=== PATIENT | female | born 1940 | race Caucasian/White ===

== ENCOUNTER 2020-01-24 09:34 | Outpatient (CLI) | payer MEDICARE, SELFPAY ==
--- NOTE | ~2020-01-24 | XR_ITS ---
EXAMINATION: XR chest 2V 01/24/2020 10:54 INDICATION: Preop PROCEDURE: 2 view chest COMPARISON: No prior studies for comparison. FINDINGS: The lungs are clear. The cardiomediastinal silhouette is within normal limits. There are no pleural effusions. There is no pneumothorax suspected. IMPRESSION: 1: NO ACUTE CARDIOPULMONARY DISEASE. Reviewed, dictated and finalized at location B.
--- NOTE | 2020-01-24 10:32 | ECG_ITS ---
Measurements Intervals [place] Rate: 55 P: 35 NE: 158 QRS: -11 QRSD: 89 T: -14 QT: 487 QTc: 467 Interpretive Statements SINUS BRADYCARDIA LOW QRS VOLTAGE IN PRECORDIAL LEADS INFERIOR INFARCT, AGE INDETERMINATE ST-T WAVE ABNORMALITY IN ANTERIOR LEADS- CONSIDER ISCHEMIA ABNORMAL ECG Electronically Signed On 01-24-2020 12:11:21 CDT by Volodymyr Schumacher D.O.
[2020-01-24 11:16] LABS: Basophils Absolute Auto 0.1 K/mm3 (0.0-0.1); Eosinophils Absolute Auto 0.1 K/mm3 (0-0.3); Eosinophils Percent Auto 1.5 % (0-4.4); Hematocrit 40.6 % (37.0-47.0); Hemoglobin 13.4 g/dL (12.0-15.0); Immature Granulocyte Absolute 0.01 K/mm3 (0.00-0.031); Immature Granulocyte Percent A 0.2 % (0-0.5); Lymphocytes Absolute Auto 1.57 K/mm3 (0.9-3.2); Lymphocytes Percent Auto 26.7 % (18.3-44.2); Mean Platelet Volume 11.3 fl (7.4-10.4); Monocytes Absolute Auto 0.5 K/mm3 (0.1-0.6); Monocytes Percent Auto 8.5 % (2.6-8.5); Neutrophils Absolute Auto 3.7 K/mm3 (1.3-6.7); Neutrophils Percent Auto 62.1 % (45.5-73.1); Platelet Count Result 221 k/mm3 (150-375); Red Blood Count 4.32 M/mm3 (4.2-5.4); White Blood Count 5.9 K/mm3 (4.5-10.0)
[2020-01-24 11:30] LABS: Albumin Level 4.4 g/dL (3.5-5.1); Blood Urea Nitrogen 22 mg/dL (7-17); Carbon Dioxide 30 mmol/L (22-30); Chloride 101 mmol/L (98-107); Estimated Glomerular Filt Rate 44; Glucose 102 mg/dL (65-105); Potassium 4.1 mmol/L (3.4-5.0); Sodium 139 mmol/L (137-145)
[2020-01-24 11:59] LABS: Hemoglobin A1C 5.6 % (<5.7)
[2020-01-24 13:46] LABS: Urine Cotinine NEGATIVE
== END 2020-01-24 09:35 | disposition home or self-care (01) ==
LOC: ANHSURGERY 09:37
PROVIDERS: PCP Internal Medicine; Visit Provider Orthopaedic Surgery
DX: M16.12 Unilateral primary osteoarthritis, left hip (principal); Z01.818 Encounter for other preprocedural examination
CPT/HCPCS: 36415; 71046; 80048; 80307; 82040; 83036; 85025; 87070; 93005

== ENCOUNTER 2020-01-30 10:17 | Outpatient (CLI) | payer MEDICARE, SELFPAY ==
--- NOTE | ~2020-01-30 | XR_ITS ---
EXAMINATION: XR lg joint inject/asp w image DATE: 01/30/2020 11:05 INDICATION: Severe osteoarthritis of the right glenohumeral joint. TECHNIQUE: A time-out was performed to verify the patient's name, date of , and procedure to b e performed. The procedure including the risks, benefits, and alternatives was discussed with the pat ient. Risks discussed included bleeding and infection. The patient understood the risks and agreed to proceed. The skin overlying the right glenohumeral joint was prepped and draped in usual sterile fa shion. Anesthetic was administered with 1% lidocaine subcutaneously. A 22 G needle was advanced und er fluoroscopic guidance into the joint. Injection of 1 mL of Omnipaque 240 confirmed intra-articula r position of the needle. Subsequently, injectate consisting of 3 mL 1% lidocaine and 1 mL 80 mg/mL Depo-Medrol was instilled. The needle was removed and the entry site was cleaned and dressed. There were no immediate complications. Fluoroscopy exposure time was 0.1 minutes. The total number of imag es was 2. FINDINGS: Real-time fluoroscopy demonstrates the needle in the right glenohumeral joint. IMPRESSION: 1. Right glenohumeral joint injection of local anesthetic and steroid . Reviewed, dictated and finalized at location A.
== END 2020-01-30 10:18 | disposition home or self-care (01) ==
PROVIDERS: PCP Internal Medicine; Visit Provider Orthopaedic Surgery
DX: M19.011 Primary osteoarthritis, right shoulder (principal)
CPT/HCPCS: 20610; 77002; J1040; Q9966

== ENCOUNTER 2020-01-31 07:16 | Outpatient (CLI) | payer MEDICARE, SELFPAY ==
--- NOTE | 2020-01-31 | EST_ITS ---
Patient Info Name: Maribel Smith Age: 79 years : 1940 Gender: Female Ht: 65 in Wt: 159 lbs BSA: 1.83 m2 HR: 57 bpm BP: 117 / 58 mmHg Heart Rhythm: Sinus Rhythm Exam Date: 01/31/2020 9:21 AM Exam Location: [facility] Stress Patient Status: Outpatient Admit Date: 01/31/2020 Staff Ordering Physician: Danna, Nicanor Ge MD Attending Provider: Danna, Nicanor Ge MD Exercise Technologist: Nuha Marcos RDCS Nurse: Irma Chambers, ANP, ACNP-BC Exam Type: CA stress josi w NM Study Info Indications R94.31 - Abnormal electrocardiogram ECG EKG A regadenoson stress test was performed. Summary 1. Please correlate with nuclear medicine images, reported separately. 2. Non-diagnostic ECG response due to resting abnormalities. 3. Nondiagnostic ST and T-wave changes seen with Lexiscan. Protocol: Lexiscan Stress ECG Details Stage: REST Duration (min): 1 min : 2 sec HR (bpm): 58 SBP (mmHg): 117 DBP (mmHg): 58 Stage: REST Duration (min): 11 min : 43 sec HR (bpm): 55 SBP (mmHg): 117 DBP (mmHg): 58 Stage: REST Duration (min): 17 min : 16 sec HR (bpm): 57 SBP (mmHg): 117 DBP (mmHg): 58 Stage: STAGE 1 Duration (min): 1 min : 0 sec HR (bpm): 80 SBP (mmHg): 127 DBP (mmHg): 67 Stage: RECOVERY Duration (min): 1 min : 0 sec HR (bpm): 82 SBP (mmHg): 122 DBP (mmHg): 67 Stage: RECOVERY Duration (min): 2 min : 0 sec HR (bpm): 82 SBP (mmHg): 122 DBP (mmHg): 67 Stage: RECOVERY Duration (min): 3 min : 0 sec HR (bpm): 79 SBP (mmHg): 121 DBP (mmHg): 66 Stage: RECOVERY Duration (min): 3 min : 44 sec HR (bpm): 72 SBP (mmHg): 121 DBP (mmHg): 66 Rest HR: 57 bpm Peak HR: 83 bpm Rest Sys BP: 117 mmHg Peak Sys BP: 127 mmHg Max Pred HR: 143 bpm % Max Pred HR: 58 % Target HR: 122 bpm Max RPP: 10,541 bpm*mmHg Target HR Summary: Hemodynamic response to exercise was normal BP Response: Normal blood pressure response Termination Reason: Completed protocol Cardiac Symptoms: None Total Time: 1 min : 0 sec Rest Lazar BP: 58 mmHg Peak Lazar BP: 67 mmHg Total Dose: 0.4 mg Resting ECG Sinus bradycardia. Low-voltage, antral septal T-wave abnormality, consider ischemia. Stress ECG Non-diagnostic ECG response due to resting abnormalities. Nondiagnostic ST and T-wave changes seen with Lexiscan. Arrhythmias None. Report Signatures
--- NOTE | ~2020-01-31 | NM_ITS ---
EXAMINATION: NM josi stress w perfusion DATE: 01/31/2020 10:57 INDICATION: Abnormal electrocardiogram. TECHNIQUE: Rest images were obtained following intravenous administration of 10.4 mCi Tc99m tetrofosm in (Myoview). The patient was infused intravenously with Lexiscan (regadenoson). Then, 29.1 mCi Tc99m tetrofosmin (Myoview) was administered intravenously, and stress images were obtained. Data was dhiraj nstructed into short axis and horizontal and vertical long axis SPECT images. Gated SPECT images were also obtained. COMPARISON: CT abdomen and pelvis 01/26/2017 FINDINGS: There is no definite reversible or fixed perfusion abnormality to suggest ischemia or infar ction. There is no segmental wall motion abnormality. Left ventricular ejection fraction measures > 70%. IMPRESSION: 1. No definite ischemia or infarct. 2. Normal left ventricular ejection fraction measuring >70%. Reviewed, dictated and finalized at location A.
== END 2020-01-31 07:17 | disposition home or self-care (01) ==
PROVIDERS: PCP Internal Medicine; Visit Provider Internal Medicine
DX: R94.31 Abnormal electrocardiogram [ECG] [EKG] (principal)
CPT/HCPCS: 78452; 93017; A9502; J2785

== ENCOUNTER → 2020-02-08 14:18 | Outpatient (CLI) | payer MEDICARE, SELFPAY ==
--- NOTE | ~2020-02-08 | US_ITS ---
US renal BI 02/08/2020 15:27 Procedure: Realtime transabdominal ultrasound of the kidneys and bladder. Indication: Abnormal renal function tests Comparison: No prior studies for comparison. Findings: Renal echotexture is normal bilaterally without hydronephrosis, contour deforming mass or r enal calculus. The right kidney measures 8.4 cm and left kidney measures 8.4 cm. Bladder is decompre ssed limiting evaluation. Impression: 1: Unremarkable renal ultrasound. No stones, masses or hydronephrosis. Reviewed, dictated and finalized at location A. Impression: 1: Unremarkable renal ultrasound. No stones, masses or hydronephrosis.
== END ==
PROVIDERS: PCP Internal Medicine; Visit Provider Internal Medicine Nephrology
DX: R94.4 Abnormal results of kidney function studies (principal)
CPT/HCPCS: 76775

== ENCOUNTER 2020-02-09 00:06 | Outpatient (CLI) | payer MEDICARE, SELFPAY ==
[2020-02-09 20:43] LABS: SARS-CoV-2 RNA PCR Negative
== END 2020-02-09 00:07 | disposition home or self-care (01) ==
LOC: ANHCOVIDDT 00:07
PROVIDERS: PCP Internal Medicine; Visit Provider Orthopaedic Surgery
DX: Z01.818 Encounter for other preprocedural examination (principal); Z11.59 Encounter for screening for other viral diseases
CPT/HCPCS: 87635; C9803; U0003

== ENCOUNTER 2020-02-12 00:59 | Day surgery (SDC) | payer MEDICARE, SELFPAY ==
[2020-01-24 09:44] VITALS: BMI 26.7
[2020-01-24 10:37] VITALS: BP 108/50; PULSE 58; RESP 18; TEMP 36.6; O2SAT 97
--- NOTE | 2020-02-09 13:04 | HP_ITS ---
DATE OF SERVICE: 02/12/2020 ADMIT DIAGNOSIS: Degenerative joint disease, left hip. HISTORY OF PRESENT ILLNESS: The patient is a 79-year-old female patient of Dr. Clay, who presents today for a left anterior total hip arthroplasty. She has been having pain in her hip for several years. It has progressively gotten worse, most of the pain is over the anterolateral aspect of the left hip. She has wzcz-mt-zyns arthritis in this left hip. She has reached a point where she is having significant pain on daily basis and feels at this point she is ready to proceed with total hip arthroplasty. She does not utilize anti-inflammatories at this point. She has elevated creatinine from long-term NSAID use as well as hypertension and therefore has been advised, she is not allowed to take any anti-inflammatory medications. She does take Tylenol, which does not help much with her symptoms. PAST MEDICAL HISTORY: She has had her right knee replaced in 2017. She has had low back fusions in May of 2018 and then revised in June of 2018. She has history of hypertension. CURRENT MEDICATIONS: 1. Baby aspirin daily. 2. Atenolol daily. 3. Atorvastatin daily. 4. Chlorthalidone daily. 5. Melatonin daily. 6. Omeprazole daily. ALLERGIES: SHE HAS NO KNOWN DRUG ALLERGIES. AGAIN, SHE AVOIDS ANTI-INFLAMMATORIES DUE TO CHRONIC KIDNEY DISEASE. PHYSICAL EXAMINATION: VITAL SIGNS: She is 5 feet 5 inches, 161 pounds. Other vital signs per nursing on the morning of surgery. HEENT: Grossly normal. LUNGS: Clear bilaterally. HEART: Regular rate and rhythm. EXTREMITIES: The patient walks with a mild limp. She has no tenderness over the greater trochanter of the left hip. She has normal abduction strength in the lateral position. Her left hip flexes to 110 with lateral hip pain, internal rotation to 20 with anterior lateral hip pain, and external rotation of 40 without discomfort. Stinchfield maneuver, she has pain. She is moderately severe in the lateral and anterolateral aspects of the hip. 1+ knee jerk bilaterally, absent ankle jerks bilaterally. 5/5 muscle strength in all muscle groups. Left lower extremity 2+ dorsalis pedis pulse, absent posterior tibial pulse. IMAGING DATA: X-rays demonstrate severe type 1 arthritis. She has birn-qe-swcl in the superior aspect of the left hip. IMPRESSION: The patient has severe arthritis left hip with significant symptoms. She is fairly miserable and like to proceed with total hip arthroplasty. Surgical procedure as well as the risks and complications were discussed. All questions were answered. We will proceed. She will stop her aspirin 1 week prior to surgery. The patient did see Dr. Pulliam due to her chronic kidney disease. Dr. Pulliam feels that she has been stable, where her GFR has been and does not feel there is any additional protocol that needs to be done for that. She has also had a stress test done due to her abnormal EKG. Stress test showed no definite ischemia or infarct. She had normal left ventricular ejection fraction at greater than 70%. Her creatinine is 1.20. GFR is at 44. Rest of her Chem panel is within normal limits. Hemoglobin 13.3, platelets are 221. Her nasal swab was negative. We will plan to use Eliquis postoperatively for DVT prophylaxis. We will avoid Celebrex due to her chronic kidney disease. Rikki I MT: Eda
--- NOTE | 2020-02-09 13:46 | WPDANESEPPF ---
Anes - Initial Pre Proc Eval Procedure: Operation Date: 02/12/20 07:30 Proposed Procedures p Left Total Hip Arthroplasty, Anterior Approach - Joseph Vines MD Date/Time: 02/09/20 13:46 Surgeon: Joseph Vines MD Pre Op Diagnosis: OA Left Hip Patient Data Age: 79 Gender: F Height: 5 ft 5 in Weight: 72.9 kg Last Vital Signs Temp 97.8 F 01/24/20 10:37 Pulse 58 L 01/24/20 10:37 Resp 18 01/24/20 10:37 BP 108/50 L 01/24/20 10:37 Pulse Ox 97 01/24/20 10:37 Allergies Allergy/AdvReac Type Severity Reaction Status Date / Time No Known Allergies Allergy Verified 01/24/20 09:44 Home Medications Medication Instructions Recorded Confirmed Type Tylenol Arthritis Pain 1,300 mg PO Q3-4H PRN 01/24/20 01/24/20 History atenolol 25 mg PO DAILY 01/24/20 01/24/20 History atorvastatin 10 mg PO HS 01/24/20 01/24/20 History chlorthalidone 25 mg PO DAILY 01/24/20 01/24/20 History citalopram 10 mg PO DAILY 01/24/20 01/24/20 History esomeprazole magnesium 40 mg PO DAILY 01/24/20 01/24/20 History meclizine 12.5 mg PO BID 01/24/20 01/24/20 History melatonin 3 mg PO HS PRN 01/24/20 01/24/20 History vitamin B complex 1 tablet PO DAILY 01/24/20 01/24/20 History Patient hx anesthesia problems: none Family hx anesthesia problems: none [facility] Past Medical History Medical History (Updated 02/09/20 @ 13:45 by Kunal Hull MD) GERD (gastroesophageal reflux disease) Hyperlipidemia Hypertension Social History Social History Smoking status: Never smoker Second hand tobacco smoke exposure: No Additional smoking assessment comments: DENIES ANY FORM OF TOBACCO USE Alcohol intake: current Alcohol use details: WINE. ONE DRINK PER MONTH Substance use: never Living arrangements: with family Spiritual care concerns: No Anes - Eval Final PreProcedure Day of Procedure 02/09/20 13:46 Patient weight: normal Heart: regular rate and rhythm Lungs: clear to auscultation Airway: Mallampati scale class II Neurological: alert and oriented Last oral intake: >/= 8 hours ASA classification: II Emergent: no Anesthetic plan: proceed Anesthesia type and monitoring: general ETT and standard monitoring Informed Consent: The patient's anesthetic plan and its attendant risks and benefits were discussed with the patient/family/POA. Questions were solicited and answers provided to the satisfaction of the patient/family/POA.
[2020-02-12] VITALS (14 sets, daily range): BP systolic 105–148; BP diastolic 37–62; PULSE 47–71; RESP 12–20; TEMP 36.1–37.3; O2SAT 94–100
--- NOTE | ~2020-02-12 | XR_ITS ---
EXAMINATION: XR hip LT 1V w AP pelvis DATE: 02/12/2020 10:42 INDICATION: Status post left anterior approach total hip arthroplasty. TECHNIQUE: Anteroposterior and cross-table lateral views of the left hip were obtained. COMPARISON: Intraoperative image of the left hip dated 02/12/2020 FINDINGS: Again seen is a recently placed left total hip arthroplasty which appears well seated in near anatomi c alignment. Expected soft tissue gas in the postoperative bed. Suggestion of a surgical drain overly ing the left greater trochanter. No fractures identified. Mild right hip osteoarthritis. IMPRESSION: 1. Left total hip arthroplasty, negative for postoperative purposes. Reviewed, dictated and finalized at location A.
--- NOTE | ~2020-02-12 | XR_ITS ---
EXAMINATION: XR surgery orthopedic DATE: 02/12/2020 10:20 INDICATION: Anterior approach left total hip arthroplasty TECHNIQUE: Single AP fluoroscopic image of the left hip was obtained during procedure performed by Dr Akua Vines. Radiologist was not present for the imaging or procedure. The amount of fluoroscopy time u sed during this procedure was 0.8 minutes. COMPARISON: None. FINDINGS: Intraoperative image during a left total hip arthroplasty demonstrate placement of a noncemented left total hip arthroplasty which appears in near anatomic alignment on the single image provided. Acetab ular component is affixed with at least a single screw. Portions of the pelvis are excluded from the [id number]. No fractures in the visualized bones. Expected soft tissue gas is seen at the operativ e bed. IMPRESSION: 1. Expected appearance during left total hip arthroplasty. See procedure note for further detail. Reviewed, dictated and finalized at location A. IMPRESSION: 1. Expected appearance during left total hip arthroplasty. See procedure note f or further detail.
[2020-02-12] MEDS: LACTATED RINGERS 1,000 ML 30 ML IV CONT ×2 (06:30→10:43)
[2020-02-12] MEDS: TRANEXAMIC ACID 1,000MG/ISO100 1,000 MG/100 ML BAG 200 MG IVPB (06:55)
[2020-02-12] MEDS: ACETAMINOPHEN 500 MG TABLET 1000 MG PO ×3 (07:00→18:40)
--- NOTE | 2020-02-12 07:20 | WPDHPUPDATE1 ---
History and Physical Update Update Date/Time: 02/12/20 07:20 History and Physical has been reviewed, including an updated exam of the patient. There are NO changes in the patient's condition. Risks, benefits, and alternatives have been discussed and questions answered. Patient agrees to proceed with procedure.
[2020-02-12] MEDS: ceFAZolin 2 GM/D5W 50 ML 2 GM/50 ML BAG IVPB (07:53)
[2020-02-12] MEDS: ceFAZolin SODIUM 1 GM VIAL 3 GM IRRIGATION (08:03)
--- NOTE | 2020-02-12 10:08 | SUR.OPER ---
EBL: 650ML CELL SAVER: 300ML OF PATIENTS OWN BLOOD GIVEN BACK PER ANESTHESIA. SEE ANESTHESIA RECORD.
[2020-02-12] MEDS: TRANEXAMIC ACID 1,000 MG/10 ML AMPUL 1000 MG IV PUSH (10:18)
[2020-02-12] MEDS: ceFAZolin SODIUM 1 GM VIAL IV PUSH (10:23)
--- NOTE | 2020-02-12 10:53 | PM.PROC ---
Procedure Note - Detailed Date of procedure: 02/12/20 Pre-op diagnosis: OA Left Hip Post-op diagnosis: same Procedure performed: Direct anterior approach left total hip arthroplasty Description of procedure: Patient was brought to the operating room and general anesthesia was administered. The boots were applied after application of soft roll to the feet SCDs applied [facility] and the left hip prepped draped usual fashion. Patient received 2 g of Ancef 1 g of tranexamic acid and weight based vancomycin preoperatively. A 10 cm longitudinal incision was made starting 3 cm lateral to the ASIS. Dissection was carried down to the fascia over the tensor fascia suzy which was longitudinally incised. Fascia was elevated off the anterior 1/2 tensor fascia suzy and the interval between TFL and tensor fascia suzy developed. Crossing bundle of ascending branches of lateral femoral circumflex artery were isolated ligated and divided. With the hip abducted internally rotated the gluteus minimus was elevated off the lateral capsule. Standard anterior and lateral capsulotomy performed. Femoral neck osteotomy was made and the napkin ring of bone removed the femoral head was removed measured 48 mm diameter. Residual labrum from around the acetabulum was removed. The leg was extended and externally rotated and small portion of the lateral capsular flap removed and interval between piriformis and conjoined tendon incised allowing the piriformis tendon to flip posteriorly. The leg back horizontal and externally rotated the acetabulum was prepared. We medialized with a 45 Reamer and reamed up to 49 mm. This did not quite get reaming on the periphery and we lightly reamed with the 50 mm. The 50 mm trial gave an excellent snug fit and we chose the 50 mm pinnacle shell which was placed at 40? of abduction and the anteversion such as the anterior rim was just under the anterior rim of the acetabulum. An outstanding Press-Fit was achieved. A single screw was placed in the ilium and a 32 mm inner diameter 0 degree liner placed without difficulty. Most of the blood loss occurred during this phase of the operation due to bone bleeding from the acetabulum and once the liner was impacted this bleeding stopped. The leg was extended externally rotated and we broached up to a size 4. We trialed and found that the leg lengths were equal with the 1 mm neck and there was appropriate stability. There is equal offset on fluoro. The neck was calcar planed and we saw that there was just a little wiggle in the broach and broached up to a size 5 which was solid without any wiggle and torsional stress. We chose the size 5 high offset Actis stem which was impacted and fully seated with excellent fit. We trialed with the +1 head trial saw that leg lengths and offset were equal and there was appropriate stability. we irrigated wound with antibiotic solution and impacted the +1 cobalt chromium head onto the trunnion. The hip was reduced and stability reconfirmed. The anterior capsular flap was allowed to rest in situ. The fascia over the tensor fascia suzy was repaired with running 1. Vicryl drain deep in the subcu skin closed 2 Vicryl in glue EBL 650 and 300 cc were given back as Cell Saver. Third g Ancef 2nd g of tranexamic acid were given time of wound closure. There were no known complications I thought her bone quality was satisfactory to allow weight-bearing as tolerated. She did have osteopenia that was significant in the intramedullary canal the femur but the cortical room was satisfactory. Implants: Actis femoral stem, Packwood cup Anesthesia: YAJAIRAA Surgeon: Joseph Vines MD Examining Officer: Odilon Pizarro PAC Estimated blood loss (mL): 650 Drains: Yes Packing: No Pathology: none sent Complications: No immediate complications Condition: stable Disposition: PACU Findings: 300 cell Saver blood returned in the operating
[2020-02-12 12:18] LABS: Hemoglobin 11.4 g/dL (12.0-15.0)
--- NOTE | 2020-02-12 16:30 | PM.IMCN ---
Assessment and Plan Assessment and plan (1) History of total left hip arthroplasty: Code(s): Z96.642 - Presence of left artificial hip joint Status: Acute Assessment and Plan: Postop care per Ortho. DVT prophylaxis per ortho. Patient has on bilateral TEDs and SCDs for DVT prophylaxis. Pain management per orthopedic physician. She is also on Eliquis. (2) Hypertension: Code(s): I10 - Essential (primary) hypertension Status: Chronic Assessment and Plan: Patient's home medication was continued. continue with atenolol (3) Hyperlipidemia: Code(s): E78.5 - Hyperlipidemia, unspecified Status: Chronic Assessment and Plan: continue with atorvastatin. (4) GERD (gastroesophageal reflux disease): Code(s): K21.9 - Gastro-esophageal reflux disease without esophagitis Status: Chronic Assessment and Plan: Patient states that she occasionally uses Nexium. (5) Anxiety: Code(s): F41.9 - Anxiety disorder, unspecified Status: Chronic Assessment and Plan: Continue with patient's Celexa HPI Data of Consult Consult date: 02/12/20 Requesting Physician: Joseph Vines MD Primary Care Provider: Nicanor ClayMD Consult Narrative Narrative: Maribel Kidd Widluz maria is a 79 year old female Has chronic lower back knee and hip pain. The patient stated that she has had injections in the past and they did not help her. She has had chronic right knee and left hip and lower back pain. The patient was found to have zmes-pl-iprp arthritis to the left hip. She was unable to tolerate NSAIDs due to an elevated creatinine. She does take Tylenol but that does not help very much for symptoms. The patient decided to undergo a left total hip arthroplasty today by Dr. Vines. the patient plans on going home to do rehab. She just states that she feels very tired today she did not sleep very well last night. She typically does not sleep well during the night. Patient has trying to the left hip. She had the anterior total hip Arthroplasty. Patient complains having a dry mouth but denies any nausea vomiting or diarrhea. I think the orthopedic team for this consult. I spent approximately 30 minutes with his patient date of service is 02/12/2020. please see operative notes. Review of Systems Review of Systems: All systems reviewed & are unremarkable except as noted in HPI and below Constitutional: Constitutional: Reports as per HPI and Reports no additional constitutional complaints Eyes: Eyes: Reports as per HPI and Reports no additional eye complaints ENT: Reports system reviewed and no additional complaints, except as documented and Reports Normal hearing present Cardiovascular: Cardiovascular: Reports no additional cardiovascular complaints Respiratory: Respiratory: Reports no additional respiratory complaints and Reports no additional respiratory complaints Gastrointestinal: Gastrointestinal: Reports as per HPI and Reports no additional gastrointestinal complaints Musculoskeletal: Musculoskeletal: Reports no additional musculoskeletal complaints Integumentary/Breasts: Skin/Breast: Reports system reviewed and no additional complaints, except as docu and Reports as per HPI Neurologic: Reports system reviewed and no additional complaints, except as documented, Reports as per HPI and Reports Normal hearing present Psychiatric: Psychiatric: Reports no additional psychiatric complaints and Reports as per HPI Endocrine: Endocrine: Reports no additional endocrine complaints Hematologic/Lymphatic: Hematologic/Lymphatic: Reports no additional hematologic/lymphatic complaints Allergic/Immunologic: Allergic/Immunologic: Reports no additional allergic/immunologic complaints [facility] Past Medical History Medical History (Updated 02/12/20 @ 16:38 by Destiny Sandhu NP) Anxiety GERD (gastroesophageal reflux disease) Hyperlipidemia Hypertension Surgi
[2020-02-12] MEDS: MECLIZINE HCL 12.5 MG TABLET PO (16:44)
[2020-02-12] MEDS: SENNA/DOCUSATE SODIUM TABLET 2 TAB PO (16:44)
[2020-02-12] MEDS: SALIVA SUBSTITUTE COMBO RINSE 237 ML BOTTLE 15 ML PO (17:56)
[2020-02-12] MEDS: FAMOTIDINE 20 MG TABLET PO (20:58)
[2020-02-12] MEDS: ATORVASTATIN 10 MG TABLET PO (20:58)
[2020-02-13] VITALS: BP 110/38; PULSE 65; RESP 20; TEMP 37.3; O2SAT 100
[2020-02-13] MEDS: ACETAMINOPHEN 500 MG TABLET 1000 MG PO ×3 (00:55→13:07)
[2020-02-13 04:00] VITALS: BP 107/54; PULSE 64; RESP 20; TEMP 36.8; O2SAT 99
[2020-02-13 06:02] LABS: Basophils Percent Auto 0.1 % (0.2-1.2); Hematocrit 28.6 % (37.0-47.0); Hemoglobin 9.6 g/dL (12.0-15.0); Immature Granulocyte Absolute 0.06 K/mm3 (0.00-0.031); Immature Granulocyte Percent A 0.4 % (0-0.5); Lymphocytes Absolute Auto 1.46 K/mm3 (0.9-3.2); Lymphocytes Percent Auto 10.9 % (18.3-44.2); Mean Corpuscular HGB Conc 33.6 g/dl (32-36); Mean Corpuscular Hemoglobin 31.3 pg (26-34); Mean Corpuscular Volume 93.2 fl (80-100); Mean Platelet Volume 11.3 fl (7.4-10.4); Monocytes Absolute Auto 1.4 K/mm3 (0.1-0.6); Monocytes Percent Auto 10.7 % (2.6-8.5); Neutrophils Absolute Auto 10.4 K/mm3 (1.3-6.7); Neutrophils Percent Auto 77.9 % (45.5-73.1); Platelet Count Result 158 k/mm3 (150-375); Red Blood Count 3.07 M/mm3 (4.2-5.4); Red Cell Distribution Width 12.8 % (11.5-14.5); White Blood Count 13.4 K/mm3 (4.5-10.0)
[2020-02-13 06:16] LABS: Anion Gap 7.5 mmol/L (7-16); Blood Urea Nitrogen 19 mg/dL (7-17); Calcium 7.9 mg/dL (8.4-10.2); Carbon Dioxide 28 mmol/L (22-30); Chloride 103 mmol/L (98-107); Estimated CRCL calculation 37 ml/min; Estimated Glomerular Filt Rate 54; Glucose 123 mg/dL (65-105); Potassium 3.5 mmol/L (3.4-5.0); Sodium 135 mmol/L (137-145)
--- NOTE | 2020-02-13 07:37 | P.PNAN_ITS ---
Anes - Prog Note Post-Op Date/Time: 02/13/20 07:37 Cardiovascular status: normal Respiratory status: normal Airway patency: baseline Mental status: baseline Post-Op hydration status: normal Vital Signs: Last Vital Signs Temp 36.8 C 02/13/20 04:00 Pulse 64 02/13/20 04:00 Resp 20 02/13/20 04:00 BP 107/54 L 02/13/20 04:00 Pulse Ox 99 02/13/20 04:00 I/O: Intake & Output 02/12/20 02/12/20 02/13/20 15:59 23:59 07:59 Intake Total 650 840 750 Output Total 150 1000 Balance 650 690 -250 Laboratory Tests 02/13/20 05:16 02/13/20 05:16 02/12/20 02/12/20 02/13/20 06:25 12:11 05:16 WBC 13.4 H RBC 3.07 L Hgb 11.4 L 9.6 L Hct 34.0 L 28.6 L MCV 93.2 MCH 31.3 MCHC 33.6 RDW 12.8 Plt Count 158 MPV 11.3 H Immature Gran % (Auto) 0.4 Neut % (Auto) 77.9 H Lymph % (Auto) 10.9 L [place] % (Auto) 10.7 H Eos % (Auto) 0.0 Baso % (Auto) 0.1 L Lymph # (Auto) 1.46 [place] # (Auto) 1.4 H Eos # (Auto) 0.0 Baso # (Auto) 0.0 Abs Immat Gran (auto) 0.06 H Absolute Neuts (auto) 10.4 H Absolute Nucleated RBC 0.0 Nucleated RBC % 0.0 Sodium Potassium Chloride Carbon Dioxide Anion Gap BUN Creatinine Estim Creat Clear Calc Estimated GFR Glucose Calcium Blood Type B Positive Antibody Screen Negative 02/13/20 05:16 WBC RBC Hgb Hct MCV MCH MCHC RDW Plt Count MPV Immature Gran % (Auto) Neut % (Auto) Lymph % (Auto) [place] % (Auto) Eos % (Auto) Baso % (Auto) Lymph # (Auto) [place] # (Auto) Eos # (Auto) Baso # (Auto) Abs Immat Gran (auto) Absolute Neuts (auto) Absolute Nucleated RBC Nucleated RBC % Sodium 135 L Potassium 3.5 Chloride 103 Carbon Dioxide 28 Anion Gap 7.5 BUN 19 H Creatinine 1.00 Estim Creat Clear Calc 37 Estimated GFR 54 L Glucose 123 H Calcium 7.9 L Blood Type Antibody Screen Post-procedural complaints: none Patient Feedback: Patient satisfied with anesthetic care.
--- NOTE | 2020-02-13 08:00 | PM.PNORT ---
Progress Note: A&P Additional Plan POD 1 alert,avss,BP a little low-pt has not been moving much, PT tried to walk her yesterday,got lightheaded,had to sit down, pt c/o of a lot of soreness to thigh,wd-dry,NVI,drain is out. will add celebrex 100mg daily for 2 weeks to help with pain control.Will see how pt does with PT today-hopefully she will be comfortable by this afternoon,if she does not do well with PT may need to keep for another day Subjective Subjective Date/Time Seen: 02/13/20 08:00 Objective Data Vital Signs Vital Signs: Vital Signs - 24 hr 02/12/20 10:42 02/12/20 10:50 02/12/20 10:55 Temperature 36.6 C Pulse Rate 65 48 L 49 L Respiratory Rate 16 16 14 Blood Pressure 141/54 H 132/50 L 138/52 L Pulse Oximetry 100 100 100 02/12/20 11:10 02/12/20 11:25 02/12/20 11:40 Temperature Pulse Rate 47 L 49 L 48 L Respiratory Rate 12 14 18 Blood Pressure 143/52 H 148/55 H 139/49 L Pulse Oximetry 100 100 96 02/12/20 12:05 02/12/20 12:20 02/12/20 12:35 Temperature 36.1 C L 36.4 C 36.4 C L Pulse Rate 57 L 51 L 51 L Respiratory Rate 18 18 18 Blood Pressure 114/44 L 123/40 L 116/47 L Pulse Oximetry 99 100 98 02/12/20 12:50 02/12/20 14:00 02/12/20 17:30 Temperature 36.4 C 36.3 C L 37.3 C Pulse Rate 55 L 54 L 66 Respiratory Rate 18 18 18 Blood Pressure 111/40 L 116/39 L 105/37 L Pulse Oximetry 100 97 95 02/12/20 20:00 02/13/20 00:00 02/13/20 04:00 Temperature 37.1 C 37.3 C 36.8 C Pulse Rate 71 65 64 Respiratory Rate 20 20 20 Blood Pressure 113/49 L 110/38 L 107/54 L Pulse Oximetry 98 100 99 Intake/Output Intake/Output: Intake & Output 02/10/20 02/11/20 02/12/20 02/13/20 23:59 23:59 23:59 23:59 Intake Total 1840 750 Output Total 150 1000 Balance 1690 -250 Meds/Results Medications: Active Medications Generic Name Dose Route Start Last Admin Trade Name Freq PRN Reason Stop Dose Admin Acetaminophen 1,000 mg 02/12/20 13:00 02/13/20 06:00 Tylenol Tablet PO 1,000 mg Q6H JOSE ALEJANDRO Administration Al Hydrox/Mg Hydrox/Simethicone 30 ml 02/12/20 11:53 Mylanta PO Q6H PRN Indigestion Apixaban 2.5 mg 02/13/20 09:00 Eliquis PO 03/18/20 21:01 Q12HR JOSE ALEJANDRO Atenolol 25 mg 02/13/20 09:00 Tenormin PO DAILY [facility] Atorvastatin Calcium 10 mg 02/12/20 21:00 02/12/20 20:58 Lipitor PO 10 mg HS JOSE ALEJANDRO Administration Chlorthalidone 25 mg 02/13/20 09:00 Hygroton PO DAILY [facility] Citalopram Hydrobromide 10 mg 02/13/20 09:00 Celexa PO DAILY [facility] Famotidine 20 mg 02/12/20 21:00 02/12/20 20:58 Pepcid PO 20 mg Q12HR JOSE ALEJANDRO Administration Hydroxyzine HCl 50 mg 02/12/20 11:53 Atarax Tablet PO Q4H PRN Itching Cefazolin Sodium 1 gm in 50 mls @ 100 mls/hr 02/12/20 16:00 02/13/20 00:51 Ancef 1 Gm/D5w 50 Ml Pm IVPB 02/13/20 08:29 Infused Q8H [facility] Infusion Magnesium Hydroxide 30 ml 02/12/20 11:53 Milk Of Magnesia PO BID PRN Constipation Meclizine HCl 12.5 mg 02/12/20 17:00 02/12/20 16:44 Antivert PO 12.5 mg BID JOSE ALEJANDRO Administration Morphine Sulfate 2 mg 02/12/20 11:53 Morphine Sulfate Inj IV PUSH Q3H PRN Pain Rated 7-10 Naloxone HCl 0.1 mg 02/12/20 11:53 Narcan IV PUSH Q2M PRN Opiate Reversal Ondansetron HCl 4 mg 02/12/20 11:53 Zofran Inj IV PUSH Q4H PRN Nausea And Vomiting Oxycodone HCl 2.5 mg 02/12/20 11:53 Roxicodone Ir Tablet PO Q4H PRN Pain Rated 4-6 Oxycodone HCl 2.5 mg 02/12/20 13:00 02/13/20 05:58 Roxicodone Ir Tablet PO 2.5 mg Q4HR JOSE ALEJANDRO Administration Polyethylene Glycol 17 gm 02/13/20 09:00 Miralax PO QAM JOSE ALEJANDRO Saliva Substitute 15 ml 02/12/20 16:32 02/12/20 17:56 Biotene Dry Mouth Oral Rinse PO 15 ml QID PRN Administration Dry Mouth Senna/Docusate Sodium 2 tab 02/12/20 17:00 02/12/20 16:44 Senokot S Tablet PO 2 tab BID JOSE ALEJANDRO Administration
[2020-02-13] MEDS: CELECOXIB 100 MG CAPSULE PO (08:59)
[2020-02-13] MEDS: atenoloL 25 MG TABLET PO (09:00)
[2020-02-13] MEDS: APIXABAN 2.5 MG TABLET PO (09:00)
[2020-02-13] MEDS: CHLORTHALIDONE 25 MG TABLET PO (09:01)
[2020-02-13] MEDS: SENNA/DOCUSATE SODIUM TABLET 2 TAB PO (09:02)
[2020-02-13] MEDS: CITALOPRAM HYDROBROMIDE 10 MG TABLET PO (09:02)
[2020-02-13] MEDS: FAMOTIDINE 20 MG TABLET PO (09:02)
[2020-02-13] MEDS: MECLIZINE HCL 12.5 MG TABLET PO (09:02)
[2020-02-13] MEDS: polyethylene glycoL 3350 17 GM POWD.PACK PO (09:03)
--- NOTE | 2020-02-13 12:43 | DS_ITS ---
DATE OF DISCHARGE: 02/13/2020 DIAGNOSIS: Degenerative joint disease, left hip. HOSPITAL COURSE: The patient is a 79-year-old female, who underwent left anterior total hip arthroplasty by Dr. Vines on 02/12/2020, underwent the procedure without any complications. Postoperatively, she has been afebrile. Vital signs have been stable. Blood pressure has been slightly low in the 110/50 range. Pulse rate has been normal in the 60s to low 70s. She is tolerating the low blood pressure without significant symptoms. She is weightbearing as tolerated. She is on Eliquis for 5 weeks for DVT prophylaxis. She is on scheduled Tylenol as well as oxycodone initially at around 2.5, which was not handling her pain well enough, so she is on 5 mg now. We are also having her on Celebrex 100 mg a day for 2 weeks to help with her pain. She is having a lot of soreness and pain postop day 1 and having difficulty getting up, moving around because of the pain. We were avoiding Celebrex initially, because she had elevated creatinine, but postop day 1, her creatinine was 1.00. GFR was 54, which is an improvement from preop, which was 1.20 with hydration her creatinine came down to normal. Hemoglobin was 9.6 postop day 1, which was also a result of acute blood loss from surgery, but also rehydration. She is having a lot of anxiety on postop day 1 as far as getting up, moving around. Therapy initially got her up the day of surgery, she had a little bit of dizziness and had to sit down. There was no syncopal episode. OCL therapy works with her today. Hopefully get her up moving around. She will be a lot more comfortable intolerant to the pain and be a lot more comfortable with the thought of going home. Advised her, if she has extreme difficulty in finding it unable to ambulate or get up and move around. May have to keep her an additional night. Hopefully, she will be comfortable when she gets home. She was advised to keep the leg elevated to prevent swelling in the leg. The patient goes home, if she has any issues or concerns, she should call the office otherwise we will see her appointed date. D I MT: Eda
--- NOTE | 2020-02-13 14:20 | PM.IMPN ---
Progress Note: A&P Assessment and Plan (1) History of total left hip arthroplasty: Code(s): Z96.642 - Presence of left artificial hip joint Status: Acute Assessment and Plan: Patient recovering well. Continue current postoperative care. (2) Anxiety: Code(s): F41.9 - Anxiety disorder, unspecified Status: Chronic Assessment and Plan: Mood stable. Continue Celexa. (3) Hypertension: Code(s): I10 - Essential (primary) hypertension Status: Chronic Assessment and Plan: Patient's blood pressure was reviewed on 02/13/20. Blood pressure remains well controlled. Will continue current medications. Watch for hypotension. Patient does check her blood pressure at home encouraged her to continue to do this after discharge. (4) Hyperlipidemia: Code(s): E78.5 - Hyperlipidemia, unspecified Status: Chronic Assessment and Plan: stable. Continue Lipitor. (5) GERD (gastroesophageal reflux disease): Code(s): K21.9 - Gastro-esophageal reflux disease without esophagitis Status: Chronic Assessment and Plan: Stable. Continue Pepcid. Subjective Date/time seen: 02/13/20 14:20 Interval history: 79yo female here for elective left hip replacement. No n/v. No CP or SOB. Walking in the halls better today. Was dizzy yesterday but resolved today. Pain controlled. Exam Narrative: Exam Narrative: AF 98.2 107/57 64 20 99% ra Gen - NARD Chest - CTA bilater CV - RRR Abd -sfot, NT/ND Ext - no pedla edema. Psych - nml mood and affect Skin - warm and dry. Objective Data Vital Signs Vital Signs: Vital Signs - 24 hr 02/12/20 17:30 02/12/20 20:00 02/13/20 00:00 Temperature 99.1 F 98.7 F 99.1 F Pulse Rate 66 71 65 Respiratory Rate 18 20 20 Blood Pressure 105/37 L 113/49 L 110/38 L Pulse Oximetry 95 98 100 02/13/20 04:00 Temperature 98.2 F Pulse Rate 64 Respiratory Rate 20 Blood Pressure 107/54 L Pulse Oximetry 99 Intake/Output Intake/Output: Intake & Output 02/10/20 02/11/20 02/12/20 02/13/20 23:59 23:59 23:59 23:59 Intake Total 1840 1190 Output Total 150 1000 Balance 1690 190 Meds/Results Medications: Active Medications Generic Name Dose Route Start Last Admin Trade Name Freq PRN Reason Stop Dose Admin Acetaminophen 1,000 mg 02/12/20 13:00 02/13/20 13:07 Tylenol Tablet PO 1,000 mg Q6H JOSE ALEJANDRO Administration Al Hydrox/Mg Hydrox/Simethicone 30 ml 02/12/20 11:53 Mylanta PO Q6H PRN Indigestion Apixaban 2.5 mg 02/13/20 09:00 02/13/20 09:00 Eliquis PO 03/18/20 21:01 2.5 mg Q12HR JOSE ALEJANDRO Administration Atenolol 25 mg 02/13/20 09:00 02/13/20 09:00 Tenormin PO 25 mg DAILY JOSE ALEJANDRO Administration Atorvastatin Calcium 10 mg 02/12/20 21:00 02/12/20 20:58 Lipitor PO 10 mg HS JOSE ALEJANDRO Administration Celecoxib 100 mg 02/13/20 08:10 02/13/20 08:59 Celebrex PO 100 mg DAILY@0800 JOSE ALEJANDRO Administration Chlorthalidone 25 mg 02/13/20 09:00 02/13/20 09:01 Hygroton PO 25 mg DAILY JOSE ALEJANDRO Administration Citalopram Hydrobromide 10 mg 02/13/20 09:00 02/13/20 09:02 Celexa PO 10 mg DAILY JOSE ALEJANDRO Administration Famotidine 20 mg 02/12/20 21:00 02/13/20 09:02 Pepcid PO 20 mg Q12HR JOSE ALEJANDRO Administration Hydroxyzine HCl 50 mg 02/12/20 11:53 Atarax Tablet PO Q4H PRN Itching Magnesium Hydroxide 30 ml 02/12/20 11:53 Milk Of Magnesia PO BID PRN Constipation Meclizine HCl 12.5 mg 02/12/20 17:00 02/13/20 09:02 Antivert PO 12.5 mg BID JOSE ALEJANDRO Administration Morphine Sulfate 2 mg 02/12/20 11:53 Morphine Sulfate Inj IV PUSH Q3H PRN Pain Rated 7-10 Naloxone HCl 0.1 mg 02/12/20 11:53 Narcan IV PUSH Q2M PRN Opiate Reversal Ondansetron HCl 4 mg 02/12/20 11:53 Zofran Inj IV PUSH Q4H PRN Nausea And Vomiting Oxycodone HCl 2.5 mg 02/12/20 11:53 Roxicodone Ir T
== END 2020-02-13 14:47 | disposition home or self-care (01) ==
LOC: ANHSURGERY 05:55 → ANH2MED 11:54
PROVIDERS: Orthopaedic Surgery; Physician Assistant Surgical; PCP Internal Medicine; Visit Provider Internal Medicine
PROC: (CPT 27130; principal; 2020-02-12 07:30)
DX: M16.12 Unilateral primary osteoarthritis, left hip (principal); I10 Essential (primary) hypertension; E78.5 Hyperlipidemia, unspecified; K21.9 Gastro-esophageal reflux disease without esophagitis; F41.9 Anxiety disorder, unspecified
CPT/HCPCS: 27130; 36415; 73501; 80048; 85014; 85018; 85025; 86850; 86900; 86901; 87635; 97110; 97116; 97161; 97165; 97530; A9270; C1776; C9803; J0171; J0690; J1100; J1170; J1885; J2270; J2405; J2704; J2710; J2795; J3010; J3370; J7120; U0003

== ENCOUNTER 2020-04-28 10:35 | Outpatient (CLI) | payer MEDICARE, SELFPAY ==
--- NOTE | ~2020-04-28 | MR_ITS ---
EXAMINATION: MR lumbar spine wo/w con DATE: 04/28/2020 12:04 INDICATION: Low back pain. TECHNIQUE: Magnetic resonance imaging (MRI) of the lumbar spine was performed without and with 13 mL MultiHance intravenous contrast. Sequences included sagittal T2-weighted FSE, sagittal T2-weighted FS FSE, and sagittal and axial T1-weighted FSE. Postcontrast sequences included axial T2-weighted FSE a nd axial and sagittal T1-weighted FS FSE. COMPARISON: None FINDINGS: There is 15 degrees dextroscoliosis of lumbar spine. Vertebral body heights are normal. The re is severely decreased disc height at L1-L2 and L2-L3, moderately decreased disc height at L3-L4, a nd severely decreased disc height at L4-L5 and L5-S1. The following disc levels are specifically disc ussed: L1-L2: The disc is bulging. There is moderate bilateral facet joint osteoarthritis. There is mild rig ht and moderate left neural foraminal stenosis. There is mild central canal stenosis. L2-L3: The disc is bulging and has an annular fissure. There is severe bilateral facet joint osteoart hritis. There is mild right and moderate left neural foraminal stenosis. There is mild central canal stenosis. L3-L4: The disc is bulging and has an annular fissure. There is severe bilateral facet joint osteoart hritis. There is mild bilateral neural foraminal stenosis. There is mild central canal stenosis. L4-L5: The disc is bulging and has an annular fissure. There is severe bilateral facet joint osteoart hritis. There is moderate bilateral neural foraminal stenosis. There is mild central canal stenosis. L5-S1: The disc is bulging and has an annular fissure. There is severe right and moderate left facet joint osteoarthritis. There is moderate bilateral neural foraminal stenosis. There is mild central ca nal stenosis. IMPRESSION: 1. Severe lumbar spondylosis. 2. Lumbar dextroscoliosis. Reviewed, dictated and finalized at location A.
[2020-04-28 11:22] LABS: Estimated Glomerular Filt Rate 44
== END 2020-04-28 10:36 | disposition home or self-care (01) ==
LOC: ANHIMG 10:52
PROVIDERS: PCP Internal Medicine; Visit Provider Physician Assistant Medical
DX: M51.36 Other intervertebral disc degeneration, lumbar region (principal); M47.896 Other spondylosis, lumbar region
CPT/HCPCS: 72158; A9577

== ENCOUNTER → 2021-09-27 10:45 | Outpatient (CLI) | payer MEDICARE, SELFPAY ==
--- NOTE | ~2021-09-27 | MR_ITS ---
EXAMINATION: MR knee LT wo con DATE: 09/27/2021 12:00 INDICATION: Anteromedial left knee pain TECHNIQUE: Magnetic resonance imaging (MRI) of the left knee was performed without intravenous contra st. Sequences included coronal PD-weighted FSE, coronal PD-weighted FS FSE, sagittal T2-weighted FSE , sagittal PD-weighted FS FSE and axial PD weighted fat saturated FSE. COMPARISON: None. FINDINGS: Medial compartment: Complex tear of the body and posterior horn of the medial meniscus. There is a displaced meniscal fla p arising from the small junction of the body and posterior horn which extends into the recess cephal ad to the body of the medial meniscus. There is diffuse partial thickness cartilage loss with chondra l surface irregularity throughout the medial tibial plateau and weightbearing medial femoral condyle with scattered mild increased subarticular marrow signal. Lateral compartment: Complex tear of the lateral meniscus with a longitudinal horizontal tear plane extending to the infer ior articular surface extending from the anterior to the posterior horn. At the posterior horn there is a small meniscal flap which is folded posteriorly along the inferior peripheral rim of the meniscu s. Less severe partial thickness cartilage loss along the weightbearing lateral femoral condyle and a long the medial side of the lateral tibial plateau with minimal chondral surface irregularity along t he lateral tibial plateau. Patellofemoral compartment: Deep chondral ulceration at the patellar apical ridge and medial and lateral facets. Less severe part ial thickness cartilage loss with scattered mild chondral surface irregularity along the lateral troc hlea and inferior aspect of the trochlear groove and medial trochlea. Ligaments and tendons: Anterior and posterior cruciate ligaments are normal. The medial collateral ligament and fibular teena ateral ligament complex are normal. The extensor mechanism is normal. The visualized medial and later al hamstring tendons as well as the iliotibial band are normal. Fluid: Physiologic amount of fluid in the joint space. No loose osteochondral bodies identified. Small Harrington 's cyst. Osseous/other: Bone alignment is normal. No fracture or pathologic marrow replacing process. Fusiform popliteus intr amuscular lipoma measuring 2.5 similar in length along the muscular axis and 6 x 8 mm in maximal orth ogonal dimensions. IMPRESSION: 1. Complex medial and lateral meniscal tears, both with small displaced meniscal flaps. 2. Tricompartmental osteoarthritis, moderate severity with high-grade chondromalacia in the medial co mpartment, mild with moderate grade chondromalacia in the lateral compartment and mild to moderate wi th moderate to high-grade chondromalacia in the patellofemoral compartment. 3. Small Harrington's cyst. Reviewed, dictated and finalized at location A. IMPRESSION: 1. Complex medial and lateral meniscal tears, both with small displaced menisca l flaps. 2. Tricompartmental osteoarthritis, moderate severity with high-grade chondroma lacia in the medial compartment, mild with moderate grade chondromalacia in the lateral compartment and mild to moderate with moderate to high-grade chondroma lacia in the patellofemoral compartment. 3. Small Harrington's cyst.
== END ==
PROVIDERS: PCP Internal Medicine; Visit Provider Internal Medicine
DX: M71.22 Synovial cyst of popliteal space [Baker], left knee (principal); M17.12 Unilateral primary osteoarthritis, left knee; S83.232A Complex tear of medial meniscus, current injury, left knee, initial encounter; S83.272A Complex tear of lateral meniscus, current injury, left knee, initial encounter; X58.XXXA Exposure to other specified factors, initial encounter
CPT/HCPCS: 73721

== ENCOUNTER 2024-02-28 10:15 | Outpatient (RCR) | payer MEDICARE, SELFPAY ==
--- NOTE | 2023-12-23 11:09 | OPREHPOC ---
Outpatient Therapy Plan of Care This is a Multidisciplinary Plan of Care that may contain components documented by all disciplines (PT, OT, and ST.) PT Problem 1 PT Problem #1 Knowledge Deficit PT Goal 1 Goal [place] with HEP Target Visit 4 PT Problem 2 PT Problem #2 Impaired Range of Motion PT Goal 1 Goal Demonstrate 40 degrees of ari hip abduction for reduced hip restriction with ADL performance. Target Visit 8 PT Goal 2 Goal Demonstrate 25+ degrees of ari hip internal rotation to allow for improve capsular mobility and joint health Target Visit 8 PT Problem 3 PT Problem #3 Impaired Strength PT Goal 1 Goal Improve ari hip abduction strength to 4/5 to improve lateral stability with gait and ADLs Target Visit 8 PT Problem 4 PT Problem #4 Impaired Functional Mobil PT Goal 1 Goal Patient will report ability to ambulate 500' + with no pain greater than 1/10 Target Visit 8 PT Goal 2 Goal Patient will demonstrate ability to perform 10# box floor retrieval with proper hip hinge and no increased kimberly pain Target Visit 8
--- NOTE | 2023-12-23 11:09 | PTOPEVAL1 ---
Assessment and note entered by Ton Alfonso, PT Evaluation Information Assessment Status Evaluation Diagnosis L4-L5 Lumbar stenosis, Lumbar radiculopathy Onset May 2023 Subjective Information Reports that she was helping push a tractor onto a trailer about 8 months ago and has increased back pain since. New onset of neuropathy. Majority of her pain is in her back but she gets bilateral lateral hip pain with walking. She is waking up about every 2 hours when sleeping. She is a side sleeper. Initial walking in the AM she is off balance and sore, pain is constant and does not fluctuate. She is currently taking pain medication but it is not helping. Reports that she has also been affected by her rotator cuff tear. Patient points below right PSIS for pain location in seated. Reported Pain Level Pain Score 8: Self Report Assessment PT Clinical Summary Patient presents with lumbar stenosis with ari radiculopathy onset at time of injury. Patient had pain relief with flexion based activity and spinal distraction. Poor R hip mobility which is improved with lumbar stabilization at this time. Patient will benefit form skilled therapy to address spinal stabilization, hip mobility, and lumbar decompression for pain relief and improved body artist function. Plan of Care Interventions Electrical Stimulation,Gait Training,Hot Pack/Cold Pack,Manual Therapy,Neuro Re-education, Therapeutic Activities,Therapeutic Exercise PT Services Indicated Yes Treatment Frequency and 2x/week for 8 visits Duration These treatments will address the objective and functional deficits as defined above. The patient will be advanced safely and appropriately in order for the patient to progress towards his/her prior level of function. Additional exercises will be introduced and as well as a comprehensive home exercise program upon discharge, if needed, ?to ensure carryover of functional gains achieved in the clinic. This treatment plan has been reviewed and agreement upon by the patient.
--- NOTE | 2024-01-10 08:43 | PCPTNOTE ---
Pt called and canceled due to injured foot. AKS
--- NOTE | 2024-01-19 16:52 | PTOPPROG ---
Assessment and note entered by Micaela Potts, PT Evaluation Information Assessment Status Progress Diagnosis L4-L5 Lumbar stenosis, Lumbar radiculopathy ICD-10 Condition Codes (PT) Pain in low back M54.50,M54.16,R26.9 Onset May 2023 Subjective Information Pt states went to [facility] in October this year, was given an MRI and a pain pill but doesn't know what the MRI said, and didn't take the pain pill. Is still taking Diclofenac, states doesn't remember what other medications she takes she just takes them . Does not feel like anything is working right now. Is taking Tylenol. Does not recall if took prednisone after MD appt in July . Has not been back to primary since. Pt states home exercises : hurt like hell but I do them and her flesh just reed after she is finishes her exercises Assessment PT Clinical Summary Pt has attended a total of 5 therapy sessions for her low back pain and radiculopathy. She reports nothing is working and that she is always miserable. Evaluation shows possible leg length discrepancy with pelvic alignment deficits, as well as multiple areas of decreased strength, and tight musculature with lumbar distraction also relieving symptoms. Pt appears receptive today to education related to findings. Pt will benefit from physical therapy to address alignment deficits and improve pain to meet patient goals. Plan of Care Interventions Electrical Stimulation,Hot Pack/Cold Pack,Manual Therapy,Mechanical Traction,Neuro Re-education, Patient/Caregiver Educati,Therapeutic Activities, Therapeutic Exercise,Self-Care/Home Management, Ultrasound PT Services Indicated Yes Treatment Frequency and 1-2x weekly x 10 visits Duration These treatments will address the objective and functional deficits as defined above. The patient will be advanced safely and appropriately in order for the patient to progress towards his/her prior level of function. Additional exercises will be introduced and as well as a comprehensive home exercise program upon discharge, if needed, ?to ensure carryover of functional gains achieved in the clinic. This treatment plan has been reviewed and agreement upon by the patient.
--- NOTE | 2024-02-07 15:07 | PCPTNOTE ---
patient called and cancelled due to illness
--- NOTE | 2024-02-29 13:29 | PTOPDC ---
Assessment and note entered by Micaela Potts, PT Evaluation Information Assessment Status Discharge Diagnosis L4-L5 Lumbar stenosis, Lumbar radiculopathy ICD-10 Condition Codes (PT) Pain in low back M54.50,M54.16,R26.9,Weakness R53. 1 Onset May 2023 Subjective Information Pt states therapy isn't working and she knows what she needs to do and that is to call her back surgeon. Pt states she does her exercises at night before bed and sometimes in the morning. States she still wakes up and they don't help her sleep any better . States at night is her foot that cramps up and gets her out of bed. Pt reports this doctor online said this medication will heal her neuropathy so she bought them and is taking them but doesn't know what they are. Pt states her back pain has not improved at all since starting therapy. Pt states is having to sit while doing her cooking , is not as strong as she used to be. Reported Pain Level Pain Score 7: Self Report Assessment PT Clinical Summary Pt has attended therapy somewhat inconsistently over the last 10 weeks she has only had 13 visits and multiple cancellations. At her reevaluation focus was shifted to lumbar traction and strengthening. Pt has demo'd multiple times in therapy poor memory and poor carryover between sessions, and pain reports inconsistent with presentation at times. However she no longer complains of her exercises Hurting like hell or causing her flesh to burn as she did in the evaluation. Objectively she has made minimal progress and verbally states she has not improved at all since starting therapy. Pt reports wants to continue therapy however was educated if she is not making progress in therapy, continuing at this time is unlikely to help her improve. Thus patient is being discharged for lack of progress. She has been educated and encouraged to return to her primary care provider to discuss possible additional avenues including imaging, pain management, and (if she so chooses) to call her back surgeon for a consultation as well as being able to return to therapy for her balance at a later time. Plan of Care PT Services Indicated No
== END 2024-02-29 14:20 | disposition home or self-care (01) ==
LOC: ANHHIPT 10:15
PROVIDERS: PCP Physician Assistant Medical; Visit Provider Physician Assistant Medical
DX: M54.50 Low back pain, unspecified (principal)
CPT/HCPCS: 97012; 97014; 97110; 97140; 97161; 97530; 97750; G0283